=== PATIENT | male | born 1940 | race African-American/Black ===

== ENCOUNTER 2020-12-17 11:40 | Emergency (ER) | payer MEDICARE, MEDICAID ==
[~2020-12-17] VITALS: Ht 182.9 cm; Wt 109.0 kg
--- NOTE | 2020-12-17 12:51 | PHYS DOC ---
Past History Past Medical History: Cancer, Diabetes, High Cholesterol, Heart Disease, Hypertension Additional Past Medical Histor: Lung CA Past Surgical History: Other Additional Past Surgical Histo: Cardiac cath with stents, exploratory lap. lobectomy for lung CA Additional Smoking Information: quit 25 years ago Alcohol Use: Rarely Adult General Chief Complaint Chief Complaint: FACE PAIN HPI HPI Patient is a 80-year-old male with a past medical history of lung cancer status post surgical and radiation resection, hypertension, hyperlipidemia, diabetes now presenting to emergency department for new onset of right-sided jaw pain and stiffness. Patient states he woke up at approximate 6 AM this morning and noted severe pain over the right upper jaw. Patient noted that since that time he has been having difficulty opening mouth secondary to pain. Also notes tenderness over the area. Denies any injury to the area. Denies any other deficits or weakness. Denies any fever, chills, nausea or vomiting. Denies any headache Review of Systems Review of Systems Constitutional: Denies fever or chills [] Eyes: Denies change in visual acuity, redness, or eye pain [] HENT: Denies nasal congestion or sore throat [] Respiratory: Denies cough or shortness of breath [] Cardiovascular: No additional information not addressed in HPI [] GI: Denies abdominal pain, nausea, vomiting, bloody stools or diarrhea [] : Denies dysuria or hematuria [] Musculoskeletal: Denies back pain or joint pain [] Integument: Denies rash or skin lesions [] Neurologic: Denies headache, focal weakness or sensory changes [] Endocrine: Denies polyuria or polydipsia [] All other systems were reviewed and found to be within normal limits, except as documented in this note. Current Medications Current Medications Current Medications Medications (Trade) Dose Ordered Sig/Calli Start Time Stop Time Status Last Admin Dose Admin Aspirin (Aspirin Enteric Coated) 325 mg 1X ONCE 12/17/20 12:30 12/17/20 12:31 DC Fosphenytoin Sodium 1000 mg/ Sodium Chloride 70 ml @ 280 mls/hr 1X ONCE 12/17/20 12:30 12/17/20 12:44 Sodium Chloride 1,000 ml @ 1,000 mls/hr Q1H 12/17/20 12:30 12/17/20 13:29 Allergies Allergies Allergies Coded Allergies Type Severity Reaction Last Updated Verified No Known Drug Allergies 12/17/20 No Physical Exam Physical Exam Constitutional: Well developed, well nourished, no acute distress, non-toxic appearance. [] HENT: Normocephalic, atraumatic, bilateral external ears normal, oropharynx moist, no oral exudates, nose normal. [] Eyes: PERRLA, EOMI, conjunctiva normal, no discharge. [] Neck: Normal range of motion, no tenderness, supple, no stridor. [] Cardiovascular:Heart rate regular rhythm, no murmur [] Lungs & Thorax: Bilateral breath sounds clear to auscultation [] Abdomen: Bowel sounds normal, soft, no tenderness, no masses, no pulsatile masses. [] Skin: Warm, dry, no erythema, no rash. [] Back: No tenderness, no CVA tenderness. [] Extremities: No tenderness, no cyanosis, no clubbing, ROM intact, no edema. [] Neurologic: Alert and oriented X 3, normal motor function, normal sensory function, no focal deficits noted. [] Psychologic: Affect normal, judgement normal, mood normal. [] Current Patient Data Vital Signs Vital Signs Date Time Temp Pulse Resp B/P (MAP) Pulse Ox O2 Delivery O2 Flow Rate FiO2 12/17/20 11:47 97.4 82 16 144/80 (101) 95 EKG EKG [] Radiology/Procedures Radiology/Procedures CT HEAD AND MAXILLOFACIAL WITHOUT CONTRAST History: Reason: R facial weakness, right jaw pain, painful to open Comparison: None. Procedure: Axial images are obtained of the head from the skull base through the vertex without IV contrast. Helical CT imaging of the facial bones is performed without IV contrast. Findings: There is generalized cerebral atrophy. No mass-effect, midline shift, hemorrhage or obvious acute infarction is identified. Basilar cisterns are patent. Bone windows demonstrate no significant calvarial abnormality. No acute facial bone fracture. There is old fracture deformity of the anterior left maxillary sinus wall. There is moderate deviation of the anterior bony nasal septum to the right. The TMJ are intact, there are mild degenerative changes. The patient is edentulous. There are upper dentures. Mucosal thickening bilateral ethmoid sinuses. There is severe mucosal thickening of the left maxillary sinus.. Mastoid air cells are well aerated. Upper cervical spine alignment is maintained. There is mild facet hypertrophy. Bilateral carotid artery calcifications. The globes and orbits are intact. IMPRESSION: 1. No acute intracranial abnormality. Generalized cerebral atrophy. 2. No acute facial bone fracture. 3. Mild bilateral DJD of the TMJ. Electronically signed by: Vincent Montejo MD (12/17/2020 12:58 PM) [id number] Heart Score C/O Chest Pain: No Risk Factors: Risk Factors: DM, Current or recent (<one month) smoker, HTN, HLP, family history of CAD, obesity. Risk Scores: Risk Factors: DM, Current or recent (<one month) smoker, HTN, HLP, family history of CAD, obesity. Course & Med Decision Making Course & Med Decision Making Pertinent Labs and Imaging studies reviewed. (See chart for details) 80-year-old male presented with new onset of right-sided chest wall pain this was consistent with acute trigeminal neuralgia based on hyperalgesia and tenderness over the face rating up to the periorbital region. Because the patient's age and his past medical history will obtain an ACS rule to make sure this does not represent any significant cardiac abnormality will obtain a CT of the head to include the maxillofacial region. 15:06 -CT scan without any significant findings. On reevaluation patient states his pain is significantly improved but not completely gone. This time is most consistent with an acute trigeminal neuralgia there is no evidence of acute coronary syndrome or CVA. At this time will discharge home with a course of pain control and neurology follow-up. Dragon Disclaimer Dragon Disclaimer This electronic medical record was generated, in whole or in part, using a voice recognition dictation system. Departure Departure: Impression: Primary Impression: Trigeminal neuralgia of right side of face Disposition: 01 DC HOME SELF CARE/HOMELESS Condition: GOOD Referrals: MILTON SHANKS MD (PCP) ALBINA NICOLE MD Patient Instructions: Trigeminal Neuralgia Additional Instructions: EMERGENCY DEPARTMENT GENERAL DISCHARGE INSTRUCTIONS Thank you for coming to [facility] Emergency Department (ED) today and trusting us with you care. We trust that you had a positive experience in our Emergency Department. If you wish to speak to the department management, you may call the Director at [phone]. YOUR FOLLOW UP INSTRUCTIONS ARE FOLLOWS: 1. Do you have a private Doctor? If you do not have a private doctor, please ask for a resource list of physicians or clinics that may be able to assist you with follow up care. 2. The Emergency Physicain has interpreted your x-rays. The X-Ray specialist will also review them. If there is a change in the findings, you will be notified in 48 hours when at all possible. 3. A lab test or culture has been done, your results will be reviewed and you will be notified if you need a change in treatment. ADDITIONAL INSTRUCTIONS AND INFORMATION: 1. Your care today has been supervised by a physician who is specially trained in emergency care. Many problems require more than one evaluation for a complete diagnosis and treatment. We recommend that you schedule your follow up appointment as recommended to ensure complete treatment of you illness or injury. If you are unable to obtain follow up care and continue to have a problem, or if your condition worsens, we recommend that you return to the ED. 2. We are not able to safely determine your condition over the phone nor are we able to give sound medical advice over the phone. For these safety reasons, if you call for medical advice we will ask you to come to the ED for further evaluation. 3. If you have any questions regarding these discharge instructions please call the ED at [phone]. SAFETY INFORMATION: In the interest of safety, wellness, and injury prevention; we encourage you to wear your sealbelt, if you smoke; quite smoking, and we encourage family to use a protective helmet for bicycling and other sporting events that present an increased risk for head injury. IF YOUR SYMPTOMS WORSEN OR NEW SYMPTOMS DEVELOP, OR YOU HAVE CONCERNS ABOUT YOUR CONDITION; OR IF YOUR CONDITION WORSENS WHILE YOU ARE WAITING FOR YOUR FOLLOW UP APPOINTMENT; EITHER CONTACT YOUR PRIMARY CARE DOCTOR, THE PHYSICIAN WHOSE NAME AND NUMBER YOU WERE GIVEN, OR RETURN TO THE ED IMMEDIATELY. Scripts Oxycodone HCl/Acetaminophen (Percocet 5-325 mg Tablet) 1 Each Tablet 1 TAB PO PRN BID PRN for SEVERE PAIN 7-10 MDD 2 Tablet(s) for 5 Days, #10 TAB 0 Refills Prov: KRISTI ALBERT MD 12/17/20 Carbamazepine (CARBAMAZEPINE) 100 Mg Cpmp.12hr 1 CAP PO BID for pain for 30 Days, #60 CAP 0 Refills increase by 100 mg per day every 3 days until symptosm improved, maximum dose of 1000mg per day Prov: KRISTI ALBERT MD 12/17/20 Naproxen (NAPROXEN) 500 Mg Tablet 1 TAB PO BID for pain for 30 Days, #60 TAB 0 Refills Prov: KRISTI ALBERT MD 12/17/20 Prednisone (PREDNISONE) 20 Mg Tablet 1 TAB PO DAILY for pain, #5 TAB Prov: KRISTI ALBERT MD 12/17/20 KRISTI ALBERT MD Dec 17, 2020 12:51
--- NOTE | 2020-12-17 13:00 | RAD ---
CT HEAD AND MAXILLOFACIAL WITHOUT CONTRAST History: Reason: R facial weakness, right jaw pain, painful to open Comparison: None. Procedure: Axial images are obtained of the head from the skull base through the vertex without IV co ntrast. Helical CT imaging of the facial bones is performed without IV contrast. Findings: There is generalized cerebral atrophy. No mass-effect, midline shift, hemorrhage or obvious acute infarction is identified. Basilar cistern s are patent. Bone windows demonstrate no significant calvarial abnormality. No acute facial bone fracture. There is old fracture deformity of the anterior left maxillary sinus w all. There is moderate deviation of the anterior bony nasal septum to the right. The TMJ are intact, there are mild degenerative changes. The patient is edentulous. There are upper dentures. Mucosal thickening bilateral ethmoid sinuses. There is severe mucosal thickening of the left maxillar y sinus.. Mastoid air cells are well aerated. Upper cervical spine alignment is maintained. There is mild facet hypertrophy. Bilateral carotid artery calcifications. The globes and orbits are intact. IMPRESSION: 1. No acute intracranial abnormality. Generalized cerebral atrophy. 2. No acute facial bone fracture. 3. Mild bilateral DJD of the TMJ. Electronically signed by: Vincent Montejo MD (12/17/2020 12:58 PM) [id number]
[2020-12-17] MEDS: IV NORMAL SALINE 1,000ML 1,000 ML IV SCH (13:05)
[2020-12-17] MEDS: ASPIRIN ENTERIC COATED 325 MG TABLET.DR. PO ONE (13:10)
[2020-12-17] MEDS: FOSPHENYTOIN 1,000 MG in IV NORMAL SALINE 50ML 50 ML IV ONE (13:10)
[2020-12-17 13:29] LABS: BASO % 0 % (0-3); EOS # 0.2 x10^3/uL (0.0-0.7); EOS % 2 % (0-3); HEMATOCRIT 39.2 % (39.0-53.0); HEMOGLOBIN 12.7 g/dL (13.0-17.5); LYMPH # 1.3 x10^3/uL (1.0-4.8); LYMPH % 12 % (24-48); MEAN CORPUSCULAR HEMOGLOBIN 26 pg (25-35); MEAN CORPUSCULAR HGB CONC 32 g/dL (31-37); MEAN CORPUSCULAR VOLUME 79 fL (79-100); MONO # 0.7 x10^3/uL (0.0-1.1); MONO % 7 % (0-9); NEUT # 9.2 x10^3uL (1.8-7.7); NEUT % 80 % (31-73); PLATELET COUNT 228 x10^3/uL (140-400); RED BLOOD COUNT 4.96 x10^6/uL (4.30-5.70); WHITE BLOOD COUNT 11.5 x10^3/uL (4.0-11.0)
[2020-12-17] MEDS ORDERED: MORPHINE SULFATE 4 MG/ML DISP.SYRIN. ONE (13:32)
[2020-12-17] MEDS: MORPHINE SULFATE 4 MG/ML DISP.SYRIN. IV ONE (13:34)
[2020-12-17 13:36] LABS: CALCIUM 9.6 mg/dL (8.5-10.1); CREATININE 1.7 mg/dL (0.7-1.3); GFR 47.4; POTASSIUM 4.3 mmol/L (3.5-5.1)
[2020-12-17 13:46] LABS: ALBUMIN 3.9 g/dL (3.4-5.0); ALBUMIN/GLOBULIN RATIO 0.9 (1.0-1.7); TOTAL BILIRUBIN 0.4 mg/dL (0.2-1.0); TOTAL PROTEIN 8.4 g/dL (6.4-8.2)
[2020-12-17] MEDS: KETOROLAC 15 MG/ML VIAL. IVP ONE (14:24)
[2020-12-17 14:25] LABS: AMPHETAMINE/METHAMPHETAMINE NEG (NEG); BARBITURATES NEG (NEG); BENZODIAZEPINES NEG (NEG); CANNABINOIDS NEG (NEG); COCAINE NEG (NEG); METHADONE NEG (NEG); OPIATES POS (NEG); PHENCYCLIDINE NEG (NEG)
[2020-12-17] MEDS: predniSONE 20 MG TABLET PO ONE (14:32)
[2020-12-17 14:48] LABS: SEDIMENTATION RATE 45 (0-15)
[2020-12-17 15:02] LABS: BACTERIA,URINE 0 /HPF (0-FEW); BILIRUBIN,URINE NEG (NEG); CLARITY,URINE CLEAR; COLOR,URINE YELLOW; GLUCOSE,URINE NEG (NEG); NITRITE,URINE NEG (NEG); RBC,URINE OCC /HPF (0-2); SQUAMOUS EPITHELIAL CELL,UR OCC /LPF; UROBILINOGEN,URINE 0.2 mg/dL (0.2 mg/dL); WBC,URINE OCC /HPF (0-4)
[2020-12-17] MEDS ORDERED: CARB100C4 PO (15:17)
[2020-12-17] MEDS ORDERED: NAPR-514 PO (15:17)
[2020-12-17] MEDS ORDERED: OXYC-325 PO ×2 (15:17→15:18)
[2020-12-17] MEDS ORDERED: PRED20TA PO (15:17)
[2020-12-17 15:30] VITALS: BP 151/89
--- NOTE | 2020-12-18 08:57 | EKG ---
[address] [address] Test Date: 2020-12-17 Test Time: 12:11:49 Pat Name: HEYDI KEARNS Department: Room: Gender: M Smoke Tester: ROSETTA : 1940 Requested By: KRISTI ALBERT Order Number: [id number] Reading MD: Measurements Intervals [place] Rate: 83 P: 36 OH: 176 QRS: -3 QRSD: 84 T: 35 QT: 372 QTc: 438 Interpretive Statements SINUS RHYTHM LEFTWARD AXIS QRS(T) CONTOUR ABNORMALITY CONSISTENT WITH INFERIOR INFARCT PROBABLY OLD ABNORMAL ECG RI6.02 No previous ECG available for comparison
== END 2020-12-17 16:12 | disposition home or self-care (01) ==
LOC: ER 11:40
DX: G50.0 Trigeminal neuralgia (principal); E11.9 Type 2 diabetes mellitus without complications; E78.00 Pure hypercholesterolemia, unspecified; I11.9 Hypertensive heart disease without heart failure; Z87.891 Personal history of nicotine dependence
CPT/HCPCS: 36415; 70450; 70486; 80053; 80307; 81001; 83605; 84484; 85025; 85610; 85651; 85730; 93005; 96365; 96375; 99284; J1885; J2270; J3010; J7030; J7512; Q2009

== ENCOUNTER 2021-01-13 14:41 | Observation (INO) | payer MEDICARE, MEDICAID ==
[~2021-01-13] VITALS: Ht 160 cm; Wt 84.4 kg
[~2021-01-13 14:41] MED LIST changes: -ASPI-630 PO; -ATOR20TA58 PO; -FURO20TA3 PO; -GABA-586 PO; -IOHEXOL 240 MG/ML 50ML VIAL. ONE; -IOHEXOL 300 MG/ML 75 ML VIAL. IV ONE; -LATA7.5D OU; -LORA-254 PO; -LOSA100T14 PO; -METF10007 PO; -METO50TA29 PO; -OMEP40CA45 PO; -POTA10TA5 PO; -SERT100T PO; -VITA1TAB31 PO
[2021-01-13] MEDS ORDERED: ONDANSETRON PF 4 MG/2 ML VIAL. IVP PRN (15:00)
[2021-01-13 15:28] VITALS: BP 137/75
--- NOTE | 2021-01-13 18:02 | NUR ---
ADMISSION NOTE Pt admitted today via Dr. Victoria. Concern for N/V, dehydration, hydronephrosis and abnormal CT results. PT was admitted directly from Urgent Care. This RN is unable to obtain IV, awaiting another RN to attempt IV at this time. to provide updated med list this evening in order to update his home medications. Pt resting comfortably, complains of slight nausea and abdominal pain after eating sandwich and chips [employer]. Pt notified of clear liquid diet status while in the hospital. Will continue to monitor with a goal of pain control and IV placement. CC, RN
[2021-01-13 18:09] VITALS: BP 137/75
[2021-01-13] MEDS: MORPHINE SULFATE 2 MG/ML DISP.SYRIN. IV PRN ×2 (18:25→21:02)
[2021-01-13] MEDS ORDERED: LORA-254 PO (19:27)
[2021-01-13] MEDS ORDERED: FURO20TA3 PO (19:27)
[2021-01-13] MEDS ORDERED: ATOR20TA58 PO (19:27)
[2021-01-13] MEDS ORDERED: GABA-586 PO (19:27)
[2021-01-13] MEDS ORDERED: SERT100T PO (19:27)
[2021-01-13] MEDS ORDERED: LOSA100T14 PO (19:27)
[2021-01-13] MEDS ORDERED: ASPI-630 PO (19:27)
[2021-01-13] MEDS ORDERED: METF10007 PO (19:27)
[2021-01-13] MEDS ORDERED: METO50TA29 PO (19:27)
[2021-01-13] MEDS ORDERED: LATA7.5D OU (19:27)
[2021-01-13] MEDS ORDERED: POTA10TA5 PO (19:27)
[2021-01-13] MEDS ORDERED: OMEP40CA45 PO (19:27)
[2021-01-13] MEDS ORDERED: VITA1TAB31 PO (19:27)
[2021-01-13] MEDS: IV NORMAL SALINE 1,000ML 1,000 ML IV SCH (20:25)
[2021-01-13] MEDS ORDERED: GABAPENTIN 300 MG CAPSULE. PO SCH (21:00)
[2021-01-14] MEDS: MORPHINE SULFATE 2 MG/ML DISP.SYRIN. IV PRN ×2 (05:46→09:28)
[2021-01-14 05:52] VITALS: BP 136/72
[2021-01-14 05:53] LABS: BASO % 0 % (0-3); EOS # 0.2 x10^3/uL (0.0-0.7); EOS % 3 % (0-3); HEMATOCRIT 34.1 % (39.0-53.0); HEMOGLOBIN 11.1 g/dL (13.0-17.5); LYMPH # 0.9 x10^3/uL (1.0-4.8); LYMPH % 13 % (24-48); MEAN CORPUSCULAR HEMOGLOBIN 26 pg (25-35); MEAN CORPUSCULAR HGB CONC 33 g/dL (31-37); MEAN CORPUSCULAR VOLUME 78 fL (79-100); MONO # 0.6 x10^3/uL (0.0-1.1); MONO % 10 % (0-9); NEUT % 74 % (31-73); PLATELET COUNT 179 x10^3/uL (140-400); RED BLOOD COUNT 4.35 x10^6/uL (4.30-5.70); RED CELL DISTRIBUTION WIDTH 15.6 % (11.5-14.5); WHITE BLOOD COUNT 6.7 x10^3/uL (4.0-11.0)
[2021-01-14 06:10] LABS: ALBUMIN 3.2 g/dL (3.4-5.0); ALBUMIN/GLOBULIN RATIO 0.8 (1.0-1.7); CALCIUM 11.4 mg/dL (8.5-10.1); CREATININE 1.6 mg/dL (0.7-1.3); GFR 50.8; POTASSIUM 5.1 mmol/L (3.5-5.1); TOTAL BILIRUBIN 0.5 mg/dL (0.2-1.0)
[2021-01-14] MEDS: IV NORMAL SALINE 1,000ML 1,000 ML IV SCH (06:27)
[2021-01-14] MEDS ORDERED: IV RINGERS SOLUTION,LACTATED 1,000 ML IV SCH (10:45)
[2021-01-14] MEDS ORDERED: ENOXAPARIN 40 MG/0.4 ML SYRINGE. SQ SCH (11:00)
[2021-01-14] MEDS ORDERED: BISACODYL 10 MG SUPP.RECT PR ONE (11:00)
[2021-01-14] MEDS ORDERED: DOCUSATE SODIUM 100 MG CAPSULE PO SCH (11:00)
--- NOTE | 2021-01-14 11:42 | RAD ---
EXAM: Chest, single view. HISTORY: Shortness of air. COMPARISON: None. FINDINGS: A frontal view of the chest is obtained. There is partially consolidated right upper lobe i nfiltrate superimposed on suspected chronic diffuse interstitial changes and emphysema. There is blun ting of the right carotid angle. The heart is normal in size. There is a suspected hiatal hernia. The re is no pneumothorax. IMPRESSION: 1. Suspected partially consolidated right upper lobe infiltrate superimposed on suspected chronic int erstitial changes and emphysema. 2. Suspected small right pleural effusion or basilar pleural-parenchymal scarring. Electronically signed by: Alberta Monteiro MD (01/14/2021 11:40 AM) [id number]
[2021-01-14 11:47] VITALS: BP 144/82
[2021-01-14] MEDS: MORPHINE SULFATE 4 MG/ML DISP.SYRIN. IV PRN ×2 (13:06→15:40)
--- NOTE | 2021-01-14 17:00 | NUR ---
Patient was transferred to for a higher level of care. Report was called to Sharon OLMOS at [facility]. Patient left the unit via gurney transported by EMS personnel. Patient was alert and oriented and in stable condition.
[2021-01-14 18:10] VITALS: BP 168/84
[2021-01-14 19:24] VITALS: BP 140/84
[2021-01-15] MEDS ORDERED: BISACODYL 10 MG SUPP.RECT PR PRN (10:45)
--- NOTE | 2021-01-15 13:46 | PN ---
DATE: 01/14/2021 SUBJECTIVE: A 80-year-old male came in with severe abdominal pain, with mass on his right side extending down into the groin area and seminal vesicles perhaps. The patient had a chest x-ray and this is updated. He does appear to have a right upper lobe pneumonia. He has been placed on IV antibiotic therapy. He does not report any shortness of breath, but does have cough intermittently. OBJECTIVE: VITAL SIGNS: Blood pressure remains stable at 140/80, pulse 80, respiratory rate 24, has gone up, temperature 97.4 on the low side. Good oxygen saturation on room air at 94%. LUNGS: Basically clear except for the right upper lobe that shows some diminishment of breath sounds. CARDIOVASCULAR: Stable. ABDOMEN: Soft, lime vat tender down in the right lower quadrant, but he also has pain down in the left lower quadrant as well. IMPRESSION: Right upper lobe pneumonia, right lower quadrant mass extending down possibly into the groin and seminal vesicles as well as pressing up against the bladder and the ureter. PLAN: Continue on IV antibiotics and still continue for transfer down to . has called Dr. Pillai's office, who is our radiation oncologist, to notify him on the situation. CHRISTIANA DR: Teddy TID: [id number]
--- NOTE | 2021-01-15 13:53 | PN ---
DATE: 01/14/2021 SUBJECTIVE: The patient came in with abdominal pain yesterday. 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 There is deformation of the bladder due to the enlargement and also some mild hydronephrosis. The patient also was noted to have mild left hydronephrosis and hydroureter. In any case, the patient is awaiting for transfer. He is resting fairly comfortably, but he still has quite a bit of pain, receiving IV morphine approximately every 2 hours. We have increased it from 2 to 4 mg. He is on Lovenox and Movantik. He is having problems with constipation. Blood pressure 136/72, pulse 80, respiratory rate 20, oxygen saturation 94%, temperature 98.4. The patient is alert and oriented. He feels fairly miserable with the pain in his lower abdominal area, but he is not having any nausea and he is somewhat dehydrated with lab work showing a sodium of 153, potassium 5.1, BUN and creatinine of 34/1.6, calcium elevated at 11.4. Albumin slightly low at 3.2. CBC shows a hemoglobin and hematocrit 11 and 34, normal differential, white count 6.7. IMPRESSION AND PLAN: Pelvic mass with severe abdominal pain extending down into the seminal vesicle compressing against the bladder wall, history of lung cancer, history of pulmonary emphysema and pulmonary fibrosis. Now, I will put him on lactated Ringer's to bring down his hypernatremia, rehydrate him, pain medication, monitor for constipation here. He is on Lovenox and we will try to get him down to for further evaluation of this pelvic mass. [facility]: MALCOLM/gaye TID: [id number]
--- NOTE | 2021-01-15 19:03 | DS ---
DATE OF DISCHARGE: 01/14/2021 HOSPITAL COURSE: This is a pleasant 80-year-old male came in with severe abdominal pain. He had a mass-like lesion along the bladder and the base of the bladder down into the right seminal vesicle and into the prostate area. The patient was having severe pain, required IV pain medication, increased morphine from 2-4 mg and the patient in turn had some relief with that, but because of this mass and the requirement of further intervention required probable biopsy or other treatments. The patient was transferred down to [facility] where his oncologist, Dr. Pillai was to be evaluated further. The patient himself of course has a history of lung cancer and also the possibility of a problem with a metastatic lesion was entertained throughout. IMPRESSION: Therefore, right lower quadrant mass, probable cancers, his history of lung cancer. PLAN: The patient will be transferred via EMS to for further intervention. MILTON SHANKS MD DR: MALCOLM/gaye JOB#: [id number] / [id number]
== END 2021-01-14 16:55 | disposition short-term general hospital (02) ==
LOC: INTOOBSV 14:53 → ICU 14:53
PROVIDERS: ADMIT Family Medicine; ATTEND Family Medicine
DX: E86.0 Dehydration (principal); N13.0 Hydronephrosis with ureteropelvic junction obstruction; C34.91 Malignant neoplasm of unspecified part of right bronchus or lung; I10 Essential (primary) hypertension; E11.9 Type 2 diabetes mellitus without complications; E78.00 Pure hypercholesterolemia, unspecified; G47.30 Sleep apnea, unspecified; J18.9 Pneumonia, unspecified organism; R10.31 Right lower quadrant pain; R19.00 Intra-abdominal and pelvic swelling, mass and lump, unspecified site; N13.30 Unspecified hydronephrosis; J84.10 Pulmonary fibrosis, unspecified; E87.0 Hyperosmolality and hypernatremia; K59.00 Constipation, unspecified; Z79.01 Long term (current) use of anticoagulants; Z85.118 Personal history of other malignant neoplasm of bronchus and lung; Z95.1 Presence of aortocoronary bypass graft; Z98.890 Other specified postprocedural states; Z87.891 Personal history of nicotine dependence; Z79.82 Long term (current) use of aspirin
CPT/HCPCS: 36415; 71045; 80053; 82947; 85025; 96361; 96365; 96367; 96372; 96375; 96376; G0378; G0379; J0696; J1650; J1956; J2270; J7030; J7120

== ENCOUNTER → 2021-01-13 | Outpatient (CLI) | payer MEDICARE, MEDICAID ==
[2020-12-17 15:30] VITALS: BP 151/89
[~2021-01-13] MED LIST: ASPI-630 PO; ATOR20TA58 PO; CARB100C4 PO; FURO20TA3 PO; GABA-586 PO; IOHEXOL 240 MG/ML 50ML VIAL. ONE; IOHEXOL 300 MG/ML 75 ML VIAL. IV ONE; LATA7.5D OU; LORA-254 PO; LOSA100T14 PO; METF10007 PO; METO50TA29 PO; NAPR-514 PO; OMEP40CA45 PO; OXYC-325 PO; POTA10TA5 PO; PRED20TA PO; SERT100T PO; VITA1TAB31 PO
[2021-01-13 12:31] LABS: BASO % 0 % (0-3); EOS # 0.2 x10^3/uL (0.0-0.7); EOS % 2 % (0-3); HEMATOCRIT 36.5 % (39.0-53.0); LYMPH # 1.1 x10^3/uL (1.0-4.8); LYMPH % 12 % (24-48); MEAN CORPUSCULAR HEMOGLOBIN 26 pg (25-35); MEAN CORPUSCULAR HGB CONC 33 g/dL (31-37); MEAN CORPUSCULAR VOLUME 78 fL (79-100); MONO # 0.7 x10^3/uL (0.0-1.1); MONO % 7 % (0-9); NEUT # 7.5 x10^3uL (1.8-7.7); NEUT % 79 % (31-73); PLATELET COUNT 215 x10^3/uL (140-400); RED BLOOD COUNT 4.66 x10^6/uL (4.30-5.70); RED CELL DISTRIBUTION WIDTH 16.2 % (11.5-14.5); WHITE BLOOD COUNT 9.5 x10^3/uL (4.0-11.0)
[2021-01-13 12:38] LABS: ALBUMIN 3.6 g/dL (3.4-5.0); ALBUMIN/GLOBULIN RATIO 0.9 (1.0-1.7); CREATININE 1.7 mg/dL (0.7-1.3); GFR 47.4; TOTAL BILIRUBIN 0.4 mg/dL (0.2-1.0); TOTAL PROTEIN 7.8 g/dL (6.4-8.2)
--- NOTE | 2021-01-13 13:37 | RAD ---
EXAM: Abdomen and pelvis CT with intravenous contrast. HISTORY: Epigastric pain. TECHNIQUE: Computed tomographic images of the abdomen and pelvis were obtained following the administ ration of intravenous contrast. Multiplanar reformatting was performed. *One or more of the following individualized dose reduction techniques were utilized for this examina tion: 1. Automated exposure control. 2. Adjustment of the mA and/or kV according to patient size. 3. Use of iterative reconstruction technique. COMPARISON: None. FINDINGS: Evaluation of the lower thorax demonstrates pulmonary emphysema and fibrosis. There is supe rimposed basilar and posterior dependent atelectasis. There is calcified atherosclerotic plaque invol ving the coronary arteries. There is calcification of the aortic valve and mitral valve annulus. Ther e is a small amount of calcified pleural plaque within the posterior left lower thorax. There is mild hepatomegaly. There are small hepatic cysts. There is a granuloma within the left hepat ic lobe. The gallbladder, pancreas and stomach are unremarkable. The spleen is enlarged, measuring 17 .3 cm transaxially. There is a 1.8 cm left adrenal nodule. There is mild left hydronephrosis and hydroureter. There is lo bulation along the superior pole of the right kidney, without a discrete solid mass. There is a tiny cortical cyst in this location. There are exophytic lesions along the anterior and posterior left kid abigail measuring 3.0 cm and 1.3 cm, the attenuation of which favors a complicated cysts. There is also a small cyst within the mid zone of the left kidney. There is no appendicitis. There is no bowel obstruction. There is contrast within the urinary bladder . There is bladder wall thickening and surrounding fatty stranding. There is deformation of the bladd er base due to nodular enlargement of the prostate. There is also masslike soft tissue in the region of the right seminal vesicle measuring approximately 4.8 cm with surrounding stranding. There is susp ected occlusion of the inferior right gonadal vein. There is calcified atherosclerotic plaque involving the aorta and main aortic branch vessels. There a re prominent right pelvic sidewall and external iliac lymph nodes measuring up to 1.2 cm. There is no suspicious osseous lesion. There is degenerative change involving the spine. IMPRESSION: 1. 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 There is also deformat ion of the bladder base due to nodular enlargement of the prostate and bladder wall thickening with s urrounding inflammatory stranding. Correlate with a PSA level and possible CT urogram or cystoscopy. 2. Mild right hydronephrosis. This may be due to mass effect on the distal ureter due to the aforemen tioned findings. No striking stone is seen. 3. Small hypodense lesions within both kidneys, the left of which may represent complicated cysts. Re nal sonography is recommended to exclude a solid lesion. 4. Hepatomegaly and small hepatic cysts. 5. Splenomegaly. 6. 1.8 cm left adrenal nodule. The attenuation of this lesion is slightly greater than expected for a n adenoma. This can be better assessed with an adrenal protocol CT or MRI. 7. Pulmonary emphysema and fibrosis. Electronically signed by: Alberta Monteiro MD (01/13/2021 1:34 PM) [id number]
== END ==
LOC: CT 11:41
PROVIDERS: ATTEND Family Medicine
DX: N13.39 Other hydronephrosis (principal); J43.9 Emphysema, unspecified; J84.10 Pulmonary fibrosis, unspecified; R16.2 Hepatomegaly with splenomegaly, not elsewhere classified; K76.89 Other specified diseases of liver; N40.2 Nodular prostate without lower urinary tract symptoms
CPT/HCPCS: 36415; 74177; 80053; 82150; 83690; 85025; Q9967